=== PATIENT | female | born 2000 | race African-American/Black ===

== ENCOUNTER 2024-03-05 21:21 | Emergency (ER) | payer SELFPAY ==
[~2024-03-05] VITALS: Ht 162.6 cm; Wt 81.6 kg
[2024-03-05 21:27] VITALS: BP 171/69; PULSE 88; RESP 16; TEMP 97.2; O2SAT 100
[2024-03-05] MEDS: MECLIZINE 25 MG TAB PO ONE (22:24)
[2024-03-05 22:31] LABS: BILIRUBIN,URINE NEGATIVE (NEGATIVE); BLOOD, URINE 3+ (NEGATIVE); LEUKOCYTE ESTERASE ,URINE TRACE (NEGATIVE); NITRITE, URINE POSITIVE (NEGATIVE); PROTEIN,URINE 3+ (NEGATIVE); UGLUCOSE NEGATIVE (NEGATIVE); UROBILINOGEN,URINE 0.2 EU/dL (0.2 - 1)
[2024-03-05 22:34] LABS: BASOPHILS % (AUTO) 0.2 % (0.0-2.0); EOSINOPHILS % (AUTO) 0.5 % (0.0-4.0); HEMATOCRIT 34.2 % (36-48); HEMOGLOBIN 11.6 g/dL (12.0-16.0); LYMPHOCYTES # (AUTO) 2.5 K/uL (2.5-16.5); LYMPHOCYTES % (AUTO) 30.3 % (20.5-51.1); MEAN CORPUSCULAR HEMOGLOBIN 29 pg (27-31); MEAN CORPUSCULAR HGB CONC 34 g/dL (33-37); MEAN CORPUSCULAR VOLUME 85.1 fL (80-94); MONOCYTES # (AUTO) 0.8 K/uL (0.8-1.0); MONOCYTES % (AUTO) 9.5 % (1.7-9.3); NEUTROPHILS # (AUTO) 4.9 K/uL (1.8-7.7); NEUTROPHILS % (AUTO) 59.5 % (42.2-75.2); PLATELET COUNT (AUTO) 258 K/uL (140-450); RED BLOOD CELL COUNT(AUTO) 4.01 MIL/uL (4.20-5.40); RED CELL DISTRIBUTION WIDTH 13.7 % (11.6-13.7); WHITE BLOOD COUNT (AUTO) 8.3 K/uL (4.8-10.8)
[2024-03-05 22:39] LABS: ANION GAP 10.6 (8-16); CALCIUM 9.4 mg/dL (8.5-10.1); CARBON DIOXIDE 29.2 mmol/L (21-32); CREATININE 0.8 mg/dL (0.6-1.3); POTASSIUM 3.8 mmol/L (3.5-5.1)
[2024-03-05 22:40] VITALS: O2SAT 100
[2024-03-05 22:49] VITALS: BP 150/91; PULSE 90; RESP 19; O2SAT 100
[2024-03-05 22:51] LABS: APPEARANCE,URINE BLOODY (CLEAR); COLOR,URINE BLOODY (YELLOW)
[2024-03-05 22:53] LABS: BACTERIA,URINE 1+ /HPF (None Seen); RBC,URINE TOO NUMEROUS TO COUN /HPF (0-5); SQUAMOUS EPITHELIAL CELL,UR 0-3 (FEW) /LPF (0-3 (FEW))
[2024-03-05] MEDS ORDERED: CEPH-588 PO (22:58)
[2024-03-05] MEDS ORDERED: MECL-303 PO (22:58)
== END 2024-03-05 23:10 | disposition home or self-care (01) ==
LOC: MED 21:21
DX: N30.01 Acute cystitis with hematuria (principal); R55 Syncope and collapse; R42 Dizziness and giddiness; Z79.899 Other long term (current) drug therapy
CPT/HCPCS: 36415; 80048; 81001; 81025; 85025; 87086; 93005; 99284; J8597

== ENCOUNTER 2024-04-11 23:06 | Emergency (ER) | payer MEDICAID ==
[~2024-04-11] VITALS: Ht 162.6 cm; Wt 77.1 kg
[~2024-04-11 23:06] MED LIST: CEPH-588 PO; MECL-303 PO
[2024-04-11 23:10] VITALS: BP 136/79; PULSE 89; RESP 18; TEMP 98; O2SAT 98
[2024-04-12] MEDS: METOCLOPRAMIDE 10 MG/2 ML INJ VIAL IM ONE (01:17)
[2024-04-12] MEDS: KETOROLAC 30 MG/ML VIAL IM ONE (01:19)
[2024-04-12] MEDS ORDERED: METO-486 PO (02:52)
[2024-04-12] MEDS ORDERED: NAPR-337 PO (02:52)
[2024-04-12 02:57] VITALS: BP 130/79; PULSE 88; RESP 18; TEMP 98; O2SAT 98
== END 2024-04-12 02:57 | disposition home or self-care (01) ==
LOC: MED 23:06
DX: G43.909 Migraine, unspecified, not intractable, without status migrainosus (principal); R42 Dizziness and giddiness; H53.8 Other visual disturbances; Z79.1 Long term (current) use of non-steroidal anti-inflammatories (NSAID); Z79.899 Other long term (current) drug therapy
CPT/HCPCS: 70450; 81025; 96372; 99285; J1885; J2765